=== PATIENT | male | born 2000 | race African-American/Black ===

== ENCOUNTER 2023-09-09 19:20 | Emergency (ER) | payer OTHER ==
[~2023-09-09] VITALS: Ht 157.5 cm; Wt 68.0 kg
[2023-09-09 19:43] VITALS: TEMP 98.2
[2023-09-09] MEDS ORDERED: ALBU18HF12 IH (21:26)
[2023-09-09] MEDS ORDERED: ALBUTEROL SULFATE HFA 90 MCG/PUFF 8 GM INHALER IH ONE (21:30)
[2023-09-09 22:05] VITALS: BP 123/63; PULSE 60; RESP 18
== END 2023-09-09 22:06 | disposition home or self-care (01) ==
LOC: EMS 19:23
DX: J45.901 Unspecified asthma with (acute) exacerbation (principal)
CPT/HCPCS: 99283; J3535

== ENCOUNTER → 2024-05-28 | Emergency (ER) | payer OTHER ==
[~2024-05-28] VITALS: Ht 160 cm; Wt 63.6 kg
[~2024-05-28] MED LIST: ALBU18HF12 IH
[2024-05-28 14:45] VITALS: TEMP 98.4
[2024-05-28 15:49] VITALS: BP 122/79; PULSE 83; RESP 16
== END | disposition home or self-care (01) ==
LOC: EMS 14:42
DX: J45.909 Unspecified asthma, uncomplicated (principal); Z76.0 Encounter for issue of repeat prescription
CPT/HCPCS: 99281; Z7502